=== PATIENT | male | born 1980 | race Caucasian/White ===

== ENCOUNTER 2016-11-28 15:46 | Emergency (ER) | payer MEDICAID, OTHER ==
[~2016-11-28] VITALS: Ht 167.6 cm; Wt 93.0 kg
[~2016-11-28 15:46] MED LIST: ACET500T98 PO; ALBU18HF INHALATION; AZIT250T94 PO; IBUP-1542 PO; UDROBDM PO
[2016-11-28 16:01] VITALS: Ht 167.6 cm; Wt 93.0 kg
[2016-11-28] MEDS ORDERED: PEN500 PO (16:25)
[2016-11-28] MEDS ORDERED: TYL500 PO (16:26)
--- NOTE | 2016-11-28 16:33 | ERD ---
ER Documentation Chief Complaint Date/Time DATE: 11/28/16 TIME: 16:30 Chief Complaint TOTAL BODY ACHES X 1 DAY HPI This is a 36-year-old male presents to the ER with body aches, fever, headache and sore throat for the last 3 days. Patient denies any cough. Sore throat is worse whenever he swallows. He denies any difficulty in breathing or swallowing. Patient states that he's been taking Tylenol for fever and body pain however body pain always returns. Patient denies any chest pain or shortness of breath. He denies any neck pain or neck stiffness. Patient states he has all his vaccinations including MMR. Patient denies recent travel or bug bites. ROS 12 point review of systems was done, all negative except per HPI. Medications Home Meds Active Scripts Acetaminophen* (Tylenol*) 500 Mg Tab, 1000 MG PO Q8H Y for PAIN AND OR ELEVATED TEMP for 3 Days, TAB Prov:DARREN OSPINA 11/28/16 Penicillin V Potassium* (Penicillin V K*) 500 Mg Tab, 500 MG PO TID for 10 Days , TAB Prov:DARREN OSPINA 11/28/16 Albuterol Sulfate* (Ventolin HFA*) 18 Gm Hfa.aer.ad, 2 PUFF INHALATION Q4H, #1 INHALER Prov:FADUMO MERIDA MD 08/10/15 Azithromycin* (Zithromax*) 250 Mg Tablet, 250 MG PO .ZPACK DIRECTED, #6 TAB TAKE 500 MG (2 TABS) THE FIRST DAY THEN 250 MG (1 TAB) DAYS 2-5 Prov:FADUMO MERIDA MD 08/10/15 Guaifenesin-Dextromethorphan* (Robitussin* DM) 100MG/10MG/5ML Syrup, 5 ML PO Q6H Y for COUGH, #120 ML 0 Refills Prov:MARC AGUAYO PA-C 08/09/15 Acetaminophen (Tylenol) 500 Mg Tab, 500 MG PO Q6, #30 TAB 0 Refills Prov:MARC AGUAYO PA-C 08/09/15 Ibuprofen* (Motrin*) 600 Mg Tab, 600 MG PO Q6H Y for PAIN AND OR ELEVATED TEMP, #30 Prov:JUAN PABLO NYE 05/17/15 Allergies Allergies: Coded Allergies: No Known Allergy (Unverified , 05/17/15) PMhx/Soc History of Surgery: No Anesthesia Reaction: No Hx Neurological Disorder: No Hx Respiratory Disorders: No Hx Cardiac Disorders: No Hx Psychiatric Problems: No Hx Miscellaneous Medical Probl: Yes (HIGH CHLOSTEROL) Hx Alcohol Use: No Hx Substance Use: No Hx Tobacco Use: No Physical Exam Vitals Vital Signs Date Time Temp Pulse Resp B/P Pulse Ox O2 Delivery O2 Flow Rate FiO2 11/28/16 16:01 99.3 82 20 136/81 97 Physical Exam GENERAL: The patient is well-developed, well-nourished, in no acute distress. NECK: Cervical spine is non tender with no step off. Supple, no nuchal rigidity HEENT: Atraumatic. Pupils equal, round and reactive to light. Extraocular muscles are grossly intact. Conjunctivae pink, no discharge. Bilateral tympanic membranes are clear with no evidence of erythema, effusion or dulling of the light reflex. Bilateral tonsillar erythema with exudate. No uvular deviation no kissing tonsils. Clear rhinorrhea. RESPIRATORY: Clear to auscultation bilaterally. There are no rales, wheezes or rhonchi. HEART: Regular rate and rhythm. No murmurs, clicks, rubs or gallops. EXTREMITIES: No clubbing or cyanosis. Full range of motion. Grossly neurovascularly intact. NEUROLOGIC: Alert and oriented. Cranial nerves II through XII are intact. SKIN: There is no rash. The skin is warm and dry. Procedures/MDM Differential diagnosis includes but is not limited to; viral illness, influenza , strep throat, otitis media, pneumonia, meningitis, sepsis, West Nile virus, mono, mumps. This is a 36-year-old male presents to the ER with sore throat, fever and body pain. Patient does appear to have strep throat on physical examination. Suspicion for retropharyngeal abscess or peritonsillar abscess is low, patient does not have any uvular deviation or kissing tonsils. For West Nile virus or mumps is low, patient has not traveled anywhere, does not recall any bug bits and has gotten all of his vaccines. Patient will be sent home with penicillin and with Tylenol. He needs to follow-up with his primary care doctor within 1-2 days or return to ER sooner symptoms worsen. My medical decision making was shared with the patient he understands and agrees with plan. Departure Diagnosis: Primary Impression: Strep throat Condition: Stable Patient Instructions: Strep Throat Additional Instructions: Llame al doctor MAANA y ulises thompson NAHUN PARA DENTRO DE 1-2 STEEN.Dgale a la secretaria que nosotros le instruimos hacer esta nahun.Avise o llame si marie condicin se empeora antes de la nahun. Regresa aqui si peor o no mejor. DARREN OSPINA Nov 28, 2016 16:33
[2016-11-29] MEDS ORDERED: HYDR-906 PO (09:02)
== END 2016-11-28 16:43 | disposition home or self-care (01) ==
LOC: E/R 15:46
DX: J02.9 Acute pharyngitis, unspecified (principal)
CPT/HCPCS: 99283

== ENCOUNTER 2016-11-29 08:28 | Emergency (ER) | payer OTHER ==
[~2016-11-29] VITALS: Ht 167.6 cm; Wt 93.5 kg
[~2016-11-29 08:28] MED LIST changes: +PEN500 PO; +TYL500 PO
[2016-11-29 08:41] VITALS: Ht 167.6 cm; Wt 93.5 kg
[2016-11-29] MEDS ORDERED: KETOROLAC 30 MG INJ IM STA (08:59)
[2016-11-29] MEDS ORDERED: HYDR-906 PO (09:02)
--- NOTE | 2016-11-29 09:09 | ERD ---
ER Documentation Chief Complaint Date/Time DATE: 11/29/16 TIME: 09:02 Chief Complaint C/O MID ABD PAIN X 4 DAYS. SEEN YESTERDAY FOR SAME HPI This is a 36-year-old male who presents to the emergency department today complaining of pain in his body for 4 several days. Patient was seen here yesterday but states he did not pick remover his prescriptions because the pharmacies were all closed. States that most of the pain is in his back and on the sides of his stomach. Denies any chest pain, shortness of breath, abdominal pain ROS All systems reviewed and are negative except as per history of present illness. Medications Home Meds Active Scripts Hydrocodone/Acetaminophen (Prague 5-325 Tablet) 1 Each Tablet, 1 TAB PO Q6H Y for PAIN, #10 TAB Prov:ARIAS JOHNSON PA-C 11/29/16 Acetaminophen* (Tylenol*) 500 Mg Tab, 1000 MG PO Q8H Y for PAIN AND OR ELEVATED TEMP for 3 Days, TAB Prov:DARREN OSPINA 11/28/16 Penicillin V Potassium* (Penicillin V K*) 500 Mg Tab, 500 MG PO TID for 10 Days , TAB Prov:DARREN OSPINA 11/28/16 Albuterol Sulfate* (Ventolin HFA*) 18 Gm Hfa.aer.ad, 2 PUFF INHALATION Q4H, #1 INHALER Prov:FADUMO MERIDA MD 08/10/15 Azithromycin* (Zithromax*) 250 Mg Tablet, 250 MG PO .ZPACK DIRECTED, #6 TAB TAKE 500 MG (2 TABS) THE FIRST DAY THEN 250 MG (1 TAB) DAYS 2-5 Prov:FADUMO MERIDA MD 08/10/15 Guaifenesin-Dextromethorphan* (Robitussin* DM) 100MG/10MG/5ML Syrup, 5 ML PO Q6H Y for COUGH, #120 ML 0 Refills Prov:MARC AGUAYO PA-C 08/09/15 Acetaminophen (Tylenol) 500 Mg Tab, 500 MG PO Q6, #30 TAB 0 Refills Prov:MARC AGUAYO PA-C 08/09/15 Ibuprofen* (Motrin*) 600 Mg Tab, 600 MG PO Q6H Y for PAIN AND OR ELEVATED TEMP, #30 Prov:JUAN PABLO NYE 05/17/15 Allergies Allergies: Coded Allergies: No Known Allergy (Unverified , 05/17/15) PMhx/Soc History of Surgery: No Anesthesia Reaction: No Hx Neurological Disorder: No Hx Respiratory Disorders: No Hx Cardiac Disorders: No Hx Psychiatric Problems: No Hx Miscellaneous Medical Probl: Yes (HIGH CHLOSTEROL, DM) Hx Alcohol Use: No Hx Substance Use: No Hx Tobacco Use: No Smoking Status: Never smoker Physical Exam Vitals Vital Signs Date Time Temp Pulse Resp B/P Pulse Ox O2 Delivery O2 Flow Rate FiO2 11/29/16 08:41 97.3 97 19 142/86 99 Physical Exam Const: No acute distress Head: Atraumatic Eyes: Normal Conjunctiva ENT: Ears TMs normal. Nose no drainage. Throat with erythema. Neck: Full range of motion..~ No meningismus. Resp: Clear to auscultation bilaterally Cardio: Regular rate and rhythm, no murmurs Abd: Soft, non tender, non distended. Normal bowel sounds Skin: No petechiae or rashes Back: No midline tenderness. Bilateral lumbar paraspinal tenderness. No CVA tenderness. Ext: No cyanosis, or edema Neur: Awake and alert Psych: Normal Mood and Affect Results 24 hrs Current Medications Medications (Trade) Dose Ordered Sig/Noe Route PRN Reason Start Time Stop Time Status Last Admin Dose Admin Ketorolac Tromethamine (Toradol) 30 mg ONCE STAT IM 11/29/16 08:59 11/29/16 09:00 DC Procedures/MDM This a 36-year-old male who presents to the emergency department today for body aches for the past 4 days. Patient was seen here in the emergency department yesterday and was diagnosed with strep pharyngitis. Patient was given a prescription for penicillin and Tylenol however he did not go pick remover his medications because he stated that all of the pharmacies were closed. I have informed the patient of the local 24-hour [facility] pharmacy where he may go pick remover his prescriptions. Patient does appear to have symptoms of strep throat however I have low suspicion for retropharyngeal abscess or peritonsillar abscess. Patient is afebrile at this time is in no acute distress. His respirations are 19 his oxygen saturation is 99. He is not tachycardic. I do not feel he requires further evaluation or workup at this time. He denied any abdominal pain on physical exam and stated the pain was mostly off to the sides down to the sides of his back. He is sitting comfortably in the chair in no acute distress. Low suspicion for acute surgical abdomen. Patient was given a Toradol injection here in the emergency department. I gave the patient a short course of Prague for home and instructed him to go pick remover his medications. I did consider that the patient may have flulike symptoms however given the duration of symptoms I do not feel that he would benefit from a prescription for Tamiflu. I have low suspicion for otitis media, PNA, sinusitis, abscess, meningitis, sepsis, or other acute infectious bacterial process. Patient has no CVA tenderness. Low suspicion for pyelonephritis or nephrolithiasis. At this time the patient is stable for discharge and outpatient management. Patient should follow up with their PCP in the next 1-2 days. They may return to the emergency department sooner for any persistent or worsening of symptoms. Patient understood and agreed with the plan. Departure Diagnosis: Primary Impression: Body aches Condition: Fair Patient Instructions: Pain Management Ref[facility]: [facility] se bhatia hecho un examen mdico de control que le indica que no est en thompson condicin que requiera tratamiento urgente en el Departamento de Emergencia. Un estudio ms profundo y el tratamiento de marie condicin pueden esperar sin ningn riesgo hasta que usted sea atendida/o en el consultorio de marie mdico o thompson cl mariajose. Es responsabilidad suya arreglar thompson nahun para el seguimiento del harpreet. MANEJO DE CONDICIONES NO URGENTES EN EL FUTURO 1) Si usted tiene un mdico de atencin primaria: Usted debera llamar a marie mdico de atencin primaria antes de venir al departamento de emergencia. Despus de las horas de consultorio, marie doctor o marie asociado/a est disponible por telfono. El mdico o enfermero de bernard en el servicio telefnico puede asesorarle por anant medio para atender el problema, o harpreet contrario se puede programar thompson nahun. 2) Si usted no tiene un mdico de atencin primaria: Llame al mdico o clnica de referencia que aparece abajo devorah las horas de consultorio para hacer thompson nahun para que le vean. CLINICAS: [facility] [id number] [facility] [phone] [facility] [[email or web address] [phone] [place] [phone] [facility] [place] [address] [phone] [facility] [phone] [address] Additional Instructions: Llame al doctor MAANA y ulises thompson NAHUN PARA DENTRO DE 1-2 STEEN.Dgale a la secretaria que nosotros le instruimos hacer esta nahun.Avise o llame si marie condicin se empeora antes de la nahun. Regresa aqui si peor o no mejor. Go pick remover your prescriptions for your antibiotic and pain medication ARIAS JOHNSON PA-C Nov 29, 2016 09:08
[2016-11-30] MEDS ORDERED: ONDA4TAB14 PO (11:32)
== END 2016-11-29 09:10 | disposition home or self-care (01) ==
LOC: FTE 08:28
DX: R52 Pain, unspecified (principal); E11.9 Type 2 diabetes mellitus without complications
CPT/HCPCS: 96372; J1885; Z7502

== ENCOUNTER 2016-11-30 08:42 | Emergency (ER) | payer OTHER ==
[~2016-11-30] VITALS: Ht 170.2 cm; Wt 92.5 kg
[~2016-11-30 08:42] MED LIST changes: +HYDR-906 PO
[2016-11-30 08:43] VITALS: Ht 170.2 cm; Wt 92.5 kg
[2016-11-30] MEDS ORDERED: ONDANSETRON 4 MG INJ IV STA (09:29)
[2016-11-30] MEDS ORDERED: KETOROLAC 30 MG INJ IV STA (09:29)
[2016-11-30] MEDS ORDERED: SOD CHLORIDE 0.9% 1,000 ML IV ONE (09:30)
[2016-11-30] MEDS ORDERED: ACETAMINOPHEN 325 MG TAB PO ONE (10:00)
[2016-11-30 10:01] LABS: ADD SCAN DIFF NO
[2016-11-30 10:05] LABS: BASOPHILS % 0.2 % (0.0-2.0); HEMATOCRIT 47.1 % (42.0-52.0); HEMOGLOBIN 15.5 g/dl (14.0-18.0); LYMPHOCYTES # 1.6 10^3/ul (0.8-2.9); LYMPHOCYTES % 36.7 % (15.0-51.0); MEAN CORPUSCULAR HGB CONC 32.9 g/dl (32.0-37.0); MEAN CORPUSCULAR VOLUME 88.2 fl (82.0-101.0); MEAN PLATELET VOLUME 12.7 fl (7.4-10.4); MONOCYTE # 0.4 10^3/ul (0.3-0.9); MONOCYTES % 8.1 % (0.0-11.0); NEUTROPHIL # 2.4 10^3/ul (1.6-7.5); NEUTROPHILS % 54.8 % (39.0-77.0); PLATELET COUNT 126 10^3/UL (140-415); RED BLOOD COUNT 5.34 10^6/ul (4.70-6.10); RED CELL DISTRIBUTION WIDTH 13.7 % (11.5-14.5); WHITE BLOOD COUNT 4.3 10^3/ul (4.8-10.8)
[2016-11-30 10:23] LABS: ADD UMIC YES; UR BILIRUBIN (Dip) NEGATIVE (NEGATIVE); UR BLOOD (Dip) TRACE (NEGATIVE); UR CLARITY CLEAR (CLEAR); UR COLOR LT. YELLOW (YELLOW); UR GLUCOSE (Dip) NEGATIVE (NEGATIVE); UR KETONES (Dip) NEGATIVE (NEGATIVE); UR LEUKOCYTE ESTERASE (Dip) NEGATIVE (NEGATIVE); UR NITRITE (Dip) NEGATIVE (NEGATIVE); UR TOTAL PROTEIN (Dip) NEGATIVE (NEGATIVE); UR UROBILINOGEN (Dip) 0.2 E.U./dL (0.1-1.0)
[2016-11-30 10:34] LABS: ALBUMIN 4.9 g/dl (3.3-4.9); ALBUMIN/GLOBULIN RATIO 1.36; BILIRUBIN,INDIRECT 0.1 mg/dl (0-1.1); BILIRUBIN,TOTAL 0.1 mg/dl (0.2-1.3); CALCIUM 8.9 mg/dl (8.4-10.2); CREATININE 0.84 mg/dl (0.61-1.24); POTASSIUM 4.1 mmol/L (3.5-5.1); TOTAL PROTEIN 8.5 g/dl (6.1-8.1)
[2016-11-30 10:54] LABS: UR MUCUS FEW; URINE RBCS 0-2 /HPF (0)
--- NOTE | 2016-11-30 11:00 | RADRPT ---
PROCEDURE: US Abdomen (right upper quadrant). CLINICAL INDICATION: Right upper quadrant pain TECHNIQUE: Multiple real-time longitudinal and transverse images of the right upper quadrant of th e abdomen were acquired utilizing a curved array transducer. Images were reviewed on a high-resoluti on PACS workstation. COMPARISON: CT abdomen pelvis from 05/17/2015 FINDINGS: The liver is normal in size with a slightly coarsened echotexture without focal mass or intrahepatic biliary dilatation. There is normal hepatopedal flow within the main portal vein. The gallbladder is well displayed without filling defects or wall thickening The common bile duct measures 3.8 mm in maximal dimension. The visualized portions of the pancreas are unremarkable with obscuration of the tail of the pancreas. No free fluid is identified. The right kidney measures 12.0 cm in length. There is normal echogenicity within the right kidney. There is no perinephric fluid collection. No hydronephrosis, mass, or calculus is seen. IMPRESSION: 1. Mildly coarsened echotexture of the liver raising the question of mild steatosis. RPTAT: [facility] Physician Cipriano Date Time Electronically viewed and signed by Physician Cipriano on 11/30/2016 10:59 /
[2016-11-30] MEDS ORDERED: ONDA4TAB14 PO (11:32)
[2016-11-30 11:37] VITALS: BP 130/78; PULSE 90; RESP 20; TEMP 98.8
--- NOTE | 2016-11-30 11:50 | ERD ---
ER Documentation Chief Complaint Date/Time DATE: 11/30/16 TIME: 11:46 Chief Complaint BODY ACHES ESPECIALLY BACK AND ABDOMEN X 4 DAYS HPI 36-year-old male patient with no significant past medical history presents to the ED complaining of generalized body aches and specifically back pain that radiates to the abdomen. States that he was diagnosed here 2 days ago with strep throat and has been taking the antibiotics. Denies having rash. Reports that he does not feel any better with taking ibuprofen and penicillin therefore presented yesterday and was given Bolivar but did not fill the medication. Denies any neck stiffness, headache, vomiting, diarrhea, rashes, chest pain, wheezing, shortness of breath. Denies any sick contacts. ROS All systems reviewed and are negative except as per history of present illness. Medications Home Meds Active Scripts Ondansetron (Ondansetron Odt) 4 Mg Tab.rapdis, 4 MG PO Q6H Y for NAUSEA AND/OR VOMITING, #10 TAB Prov:SIMONA RAPP PA-C 11/30/16 Hydrocodone/Acetaminophen (Bolivar 5-325 Tablet) 1 Each Tablet, 1 TAB PO Q6H Y for PAIN, #10 TAB Prov:ARIAS JOHNSON PA-C 11/29/16 Acetaminophen* (Tylenol*) 500 Mg Tab, 1000 MG PO Q8H Y for PAIN AND OR ELEVATED TEMP for 3 Days, TAB Prov:DARREN OSPINA 11/28/16 Penicillin V Potassium* (Penicillin V K*) 500 Mg Tab, 500 MG PO TID for 10 Days , TAB Prov:DARREN OSPINA 11/28/16 Albuterol Sulfate* (Ventolin HFA*) 18 Gm Hfa.aer.ad, 2 PUFF INHALATION Q4H, #1 INHALER Prov:FADUMO MERIDA MD 08/10/15 Azithromycin* (Zithromax*) 250 Mg Tablet, 250 MG PO .LEONOR DIRECTED, #6 TAB TAKE 500 MG (2 TABS) THE FIRST DAY THEN 250 MG (1 TAB) DAYS 2-5 Prov:FADUMO MERIDA MD 08/10/15 Guaifenesin-Dextromethorphan* (Robitussin* DM) 100MG/10MG/5ML Syrup, 5 ML PO Q6H Y for COUGH, #120 ML 0 Refills Prov:MARC AGUAYO KRISTOFER 08/09/15 Acetaminophen (Tylenol) 500 Mg Tab, 500 MG PO Q6, #30 TAB 0 Refills Prov:MARC AGUAYO ADELAAraceliLinda 08/09/15 Ibuprofen* (Motrin*) 600 Mg Tab, 600 MG PO Q6H Y for PAIN AND OR ELEVATED TEMP, #30 Prov:JUAN PABLO NYE 05/17/15 Allergies Allergies: Coded Allergies: No Known Allergy (Unverified , 05/17/15) PMhx/Soc History of Surgery: No Anesthesia Reaction: No Hx Neurological Disorder: No Hx Respiratory Disorders: No Hx Cardiac Disorders: No Hx Psychiatric Problems: No Hx Miscellaneous Medical Probl: Yes (HIGH CHLOSTEROL, DM) Hx Alcohol Use: No Hx Substance Use: No Hx Tobacco Use: No Smoking Status: Never smoker Physical Exam Vitals Vital Signs Date Time Temp Pulse Resp B/P Pulse Ox O2 Delivery O2 Flow Rate FiO2 11/30/16 11:37 98.8 90 20 130/78 99 Room Air 11/30/16 08:43 100.8 102 25 126/66 95 Physical Exam Const: Zdu-bbo-minatlayh, well-nourished. In no acute distress. Head: Atraumatic, normocephalic Eyes: Normal Conjunctiva without injection. No purulent discharge. ENT: Normal external ear, nose. Moist oropharynx without tonsillar exudates. Non -erythematous pharynx. Uvula midline. No drooling. No trismus. Neck: No cervical midline tenderness. Full range of motion. No meningismus. No cervical lymphadenopathy. No JVD. Resp: Clear to auscultation bilaterally. No wheezing, rhonchi, rales, or crackles. No accessory muscle use. No retractions. Cardio: Regular rate and rhythm. No murmurs, rubs or gallops. Abd: Soft, right upper quadrant tenderness, non distended. Normal bowel sounds. No palpable masses. No rebound tenderness. No guarding. Negative McBurney' s point. Negative psoas sign. Negative obturator sign. Skin: No petechiae or rashes Back: No midline tenderness. No CVA tenderness. Ext: No cyanosis, or edema. Neur: Awake and alert. Normal gait. Normal coordination. Psych: Normal Mood and Affect Results 24 hrs Laboratory Tests Test 11/30/16 09:40 White Blood Count 4.310^3/ul Red Blood Count 5.3410^6/ul Hemoglobin 15.5g/dl Hematocrit 47.1% Mean Corpuscular Volume 88.2fl Mean Corpuscular Hemoglobin 29.0pg Mean Corpuscular Hemoglobin Concent 32.9g/dl Red Cell Distribution Width 13.7% Platelet Count 90253^3/UL Mean Platelet Volume 12.7fl Neutrophils % 54.8% Lymphocytes % 36.7% Monocytes % 8.1% Eosinophils % 0.0% Basophils % 0.2% Nucleated Red Blood Cells % 0.0/100WBC Neutrophils # 2.410^3/ul Lymphocytes # 1.610^3/ul Monocytes # 0.410^3/ul Eosinophils # 0.010^3/ul Basophils # 0.010^3/ul Nucleated Red Blood Cells # 0.010^3/ul Urine Color LT. YELLOW Urine Clarity CLEAR Urine pH 5.5 Urine Specific [place] 1.025 Urine Ketones NEGATIVE Urine Nitrite NEGATIVE Urine Bilirubin NEGATIVE Urine Urobilinogen 0.2 E.U./dL Urine Leukocyte Esterase NEGATIVE Urine Microscopic RBC 0-2/HPF Urine Microscopic WBC 0-2/HPF Urine Mucus FEW Urine Hemoglobin TRACE Urine Glucose NEGATIVE% Urine Total Protein NEGATIVE Sodium Level 145mmol/L Potassium Level 4.1mmol/L Chloride Level 105mmol/L Carbon Dioxide Level 30mmol/L Anion Gap 14 Blood Urea Nitrogen 14mg/dl Creatinine 0.84mg/dl Glucose Level 126mg/dl Calcium Level 8.9mg/dl Total Bilirubin 0.1mg/dl Direct Bilirubin 0.00mg/dl Indirect Bilirubin 0.1mg/dl Aspartate Amino Transf (AST/SGOT) 62IU/L Alanine Aminotransferase (ALT/SGPT) 68IU/L Alkaline Phosphatase 69IU/L Total Protein 8.5g/dl Albumin 4.9g/dl Globulin 3.60g/dl Albumin/Globulin Ratio 1.36 Lipase 70U/L Monoscreen Positive Current Medications Medications (Trade) Dose Ordered Sig/Noe Route PRN Reason Start Time Stop Time Status Last Admin Dose Admin Ondansetron HCl (Zofran Inj) 4 mg ONCE STAT IV 11/30/16 09:29 11/30/16 09:31 DC 11/30/16 09:37 Ketorolac Tromethamine 30 mg 30 mg ONCE STAT IV 11/30/16 09:29 11/30/16 09:31 DC 11/30/16 09:37 Sodium Chloride (NS) 1,000 ml @ 1,000 mls/hr Q1H ONCE IV 11/30/16 09:30 11/30/16 10:29 DC 11/30/16 09:37 Acetaminophen (Tylenol Tab) 650 mg ONCE ONCE PO 11/30/16 10:00 11/30/16 10:01 DC 11/30/16 09:55 Procedures/MDM This is a 36-year-old male patient with no significant past medical history presents to the ED complaining of generalized body aches especially in the back and right upper quadrant region. Patient reports that he no longer has a sore throat. Patient is febrile at 100.8. Patient was further worked up with CBC, CMP, lipase, UA, gallbladder ultrasound. Patient's pain and symptoms have improved after treatment with 1 L of normal saline, 4 mg IV Zofran, 30 mg IV ketorolac, Tylenol. CBC: No leukocytosis. No e/o of systemic infection. No e/o anemia. CMP: No e/o severe acidosis, alkalosis, renal failure, diabetic ketoacidosis, liver disease Lipase within normal limits. Urine: No leukocyte esterase, no nitrites, no hematuria. Positive monospot. Positive influenza A. PROCEDURE: US Abdomen (right upper quadrant). CLINICAL INDICATION: Right upper quadrant pain TECHNIQUE: Multiple real-time longitudinal and transverse images of the right upper quadrant of the abdomen were acquired utilizing a curved array transducer. Images were reviewed on a high-resolution PACS workstation. COMPARISON: CT abdomen pelvis from 05/17/2015 FINDINGS: The liver is normal in size with a slightly coarsened echotexture without focal mass or intrahepatic biliary dilatation. There is normal hepatopedal flow within the main portal vein. The gallbladder is well displayed without filling defects or wall thickening The common bile duct measures 3.8 mm in maximal dimension. The visualized portions of the pancreas are unremarkable with obscuration of the tail of the pancreas. No free fluid is identified. The right kidney measures 12.0 cm in length. There is normal echogenicity within the right kidney. There is no perinephric fluid collection. No hydronephrosis, mass, or calculus is seen. IMPRESSION: 1. Mildly coarsened echotexture of the liver raising the question of mild steatosis. Patient's symptoms are likely due to mononucleosis and influenza. Both processes are viral and I instructed patient that he should discontinue taking the penicillin. Symptomatic outpatient treatment is recommended. There is low suspicion for sepsis, meningitis, strep pharyngitis, pneumonia, gastritis, GERD , peptic ulcer disease, cholecystitis, choledocholithiasis, cholangitis, pancreatitis, appendicitis, bowel obstruction, ileus, volvulus, nephrolithiasis , pyelonephritis, hepatitis, perforated viscus, diverticulitis, abdominal hernia , acute abdomen, mesenteric ischemia or other emergent conditions. This case was discussed with my supervising physician, Dr. Garcia who agreed with the management and discharge plan. Discharge medications: Zofran. Patient also given a prescription for Bolivar and Tylenol for pain and fever. Follow up with primary care physician in 2-3 days. No contact sports for 6 weeks and until cleared by PCP. Instructed patient to return to the ED sooner for any worsening symptoms. Patient's questions were answered. Patient understood and agreed with discharge plan. Patient discharged stable. Departure Diagnosis: Primary Impression: Influenza Additional Impression: Mononucleosis Condition: Stable Patient Instructions: Mononucleosis, Influenza (Adult) [facility] Usted se bhatia hecho un examen mdico de control que le indica que no est en thompson condicin que requiera tratamiento urgente en el Departamento de Emergencia. Un estudio ms profundo y el tratamiento de marie condicin pueden esperar sin ningn riesgo hasta que usted sea atendida/o en el consultorio de marie mdico o thompson cl mariajose. Es responsabilidad suya arreglar thompson nahun para el seguimiento del harpreet. MANEJO DE CONDICIONES NO URGENTES EN EL FUTURO 1) Si usted tiene un mdico de atencin primaria: Usted debera llamar a marie mdico de atencin primaria antes de venir al departamento de emergencia. Despus de las horas de consultorio, marie doctor o marie asociado/a est disponible por telfono. El mdico o enfermero de bernard en el servicio telefnico puede asesorarle por anant medio para atender el problema, o harpreet contrario se puede programar thompson nahun. 2) Si usted no tiene un mdico de atencin primaria: Llame al mdico o clnica de referencia que aparece abajo devorah las horas de consultorio para hacer thompson nahun para que le vean. CLINICAS: [facility] [phone] [facility] [phone] [facility] [phone] [place] [phone] [address] [place] [id number] [phone] [facility] [phone] [address] [facility]. [facility] () Usted se bhatia hecho un examen mdico de control que le indica que no est en thompson condicin que requiera tratamiento urgente en el Departamento de Emergencia. Un estudio ms profundo y el tratamiento de marie condicin pueden esperar sin ningn riesgo hasta que usted sea atendida/o en el consultorio de marie mdico o thompson cl mariajose. Es responsabilidad suya arreglar thompson nahun para el seguimiento del harpreet. MANEJO DE CONDICIONES NO URGENTES EN EL FUTURO 1) Si usted tiene un mdico de atencin primaria: Usted debera llamar a marie mdico de atencin primaria antes de venir al departamento de emergencia. Despus de las horas de consultorio, marie doctor o marie asociado/a est disponible por telfono. El mdico o enfermero de bernard en el servicio telefnico puede asesorarle por anant medio para atender el problema, o harpreet contrario se puede programar thompson nahun. 2) Si usted no tiene un mdico de atencin primaria: Llame al mdico o condado institucions de referencia que aparece abajo devorah las horas de consultorio para hacer thompson nahun para que le vean. SI USTED NO PUEDE PAGAR PARA GLEN UN MEDICO puede ir a: [facility] [address] [place] [address] [facility] [address] [place] [address] [facility] [address] [place] [address] [facility] [address] [place] [address] [facility] URGENT CARE/SPECIALTIES Additional Instructions: Deje de navneet los antibiticos jag las condiciones que usted bhatia sido diagnosticado con son virales. No deportes de contacto por 6 semanas. Llame al doctor MAANA y ulises thompson NAHUN PARA DENTRO DE 2-3 STEEN.Dgale a la secretaria que nosotros le instruimos hacer esta nahun.Avise o llame si marie condicin se empeora antes de la nahun. Regresa aqui si peor o no mejor. SIMONA RAPP PA-C Nov 30, 2016 11:50 SIMONA RAPP PA-C Nov 30, 2016 11:50
== END 2016-11-30 11:38 | disposition home or self-care (01) ==
LOC: FTE 08:42
DX: J10.1 Influenza due to other identified influenza virus with other respiratory manifestations (principal); B27.90 Infectious mononucleosis, unspecified without complication; E11.9 Type 2 diabetes mellitus without complications
CPT/HCPCS: 76705; 80053; 81001; 83690; 85025; 86308; 87400; J1885; J2405; J7030; Z7610; 36415; 96374; 96375

== ENCOUNTER 2016-12-09 19:24 | Emergency (ER) | payer OTHER ==
[~2016-12-09] VITALS: Ht 170.2 cm; Wt 90.0 kg
[~2016-12-09 19:24] MED LIST changes: +ONDA4TAB14 PO
[2016-12-09 19:32] VITALS: Ht 170.2 cm; Wt 90.0 kg
--- NOTE | 2016-12-09 19:57 | ERD ---
ER Documentation Chief Complaint Date/Time DATE: 12/09/16 TIME: 19:55 Chief Complaint cough x 2 days chest wall pain ramon time he coughs, back pain HPI 36-year-old male with a history of possible diabetes comes in with cough for the past week, chest pain, that radiates to his back for the past 5 days. He has sharp pain, in the center of his chest that radiates laterally each time he takes a deep breath and her outer coughs or has any chest movement. He has been here on 3 other occasions, he has been diagnosed with strep pharyngitis and took penicillin, then he returned and had a positive mono screen as well as an influenza a. He has been taking Tylenol and he states he has a frontal headache that is throbbing that started today. He has not had any fevers, chills. ROS All systems reviewed and are negative except as per history of present illness. Medications Home Meds Active Scripts Guaifenesin/Codeine Phosphate (CHERATUSSIN AC SYRUP) 118 Ml Liquid, 5 ML PO Q4H Y for COUGH, #118 ML Prov:AURE SPANGLER PA-C 12/09/16 Ibuprofen* (Motrin*) 600 Mg Tab, 600 MG PO Q6, #30 TAB Prov:AURE SPANGLER PA-C 12/09/16 Ondansetron (Ondansetron Odt) 4 Mg Tab.rapdis, 4 MG PO Q6H Y for NAUSEA AND/OR VOMITING, #10 TAB Prov:SIMONA RAPP PA-C 11/30/16 Hydrocodone/Acetaminophen (Herrin 5-325 Tablet) 1 Each Tablet, 1 TAB PO Q6H Y for PAIN, #10 TAB Prov:ARIAS JOHNSON PA-C 11/29/16 Acetaminophen* (Tylenol*) 500 Mg Tab, 1000 MG PO Q8H Y for PAIN AND OR ELEVATED TEMP for 3 Days, TAB Prov:DARREN OSPINA 11/28/16 Penicillin V Potassium* (Penicillin V K*) 500 Mg Tab, 500 MG PO TID for 10 Days , TAB Prov:DARREN OSPINA 11/28/16 Albuterol Sulfate* (Ventolin HFA*) 18 Gm Hfa.aer.ad, 2 PUFF INHALATION Q4H, #1 INHALER Prov:FADUMO MERIDA MD 08/10/15 Azithromycin* (Zithromax*) 250 Mg Tablet, 250 MG PO .ZPACK DIRECTED, #6 TAB TAKE 500 MG (2 TABS) THE FIRST DAY THEN 250 MG (1 TAB) DAYS 2-5 Prov:FADUMO MERIDA MD 08/10/15 Guaifenesin-Dextromethorphan* (Robitussin* DM) 100MG/10MG/5ML Syrup, 5 ML PO Q6H Y for COUGH, #120 ML 0 Refills Prov:MARC AGUAYO PA-C 08/09/15 Acetaminophen (Tylenol) 500 Mg Tab, 500 MG PO Q6, #30 TAB 0 Refills Prov:MARC AGUAYO PA-C 08/09/15 Ibuprofen* (Motrin*) 600 Mg Tab, 600 MG PO Q6H Y for PAIN AND OR ELEVATED TEMP, #30 Prov:JUAN PABLO NYE 05/17/15 Allergies Allergies: Coded Allergies: No Known Allergy (Unverified , 05/17/15) PMhx/Soc Medical and Surgical Hx: pt denies Medical Hx, pt denies Surgical Hx History of Surgery: No Anesthesia Reaction: No Hx Neurological Disorder: No Hx Respiratory Disorders: No Hx Cardiac Disorders: No Hx Psychiatric Problems: No Hx Miscellaneous Medical Probl: Yes (HIGH CHLOSTEROL, DM) Hx Alcohol Use: No Hx Substance Use: No Hx Tobacco Use: No Smoking Status: Never smoker Physical Exam Vitals Vital Signs Date Time Temp Pulse Resp B/P Pulse Ox O2 Delivery O2 Flow Rate FiO2 12/09/16 19:32 98.6 101 20 117/66 98 Physical Exam \General: Well-developed, well-nourished. The patient appears in no acute distress. HEENT: Head is normocephalic, atraumatic. No scleral icterus. Neck: Supple. Nontender. Lungs: Clear to auscultation. Normal air movement. Chest wall is tender to palpation in the center, patient also has bilateral latissimus pain upon palpation. Heart: Regular rate and rhythm. S1 and S2 are normal. No murmurs, gallops, or rubs. Abdomen: Soft, nontender, nondistended. Bowel sounds are normoactive. Extremities: No clubbing or cyanosis. Normal pulses. Moving extremities x 4. No weakness. Neurologic: Alert and oriented 3. No focal deficits. Skin: Normal turgor. No rash or lesions. Result Diagram: 12/09/16200712/09/162007 Results 24 hrs Laboratory Tests Test 12/09/16 20:00 12/09/16 20:08 Urine Color YELLOW Urine Clarity CLEAR Urine pH 5.5 Urine Specific [place] >=1.030 Urine Ketones NEGATIVE Urine Nitrite NEGATIVE Urine Bilirubin NEGATIVE Urine Urobilinogen 0.2 E.U./dL Urine Leukocyte Esterase NEGATIVE Urine Microscopic RBC 0-2/HPF Urine Microscopic WBC NONE SEEN/HPF Urine Squamous Epithelial Cells RARE Urine Hemoglobin TRACE Urine Glucose NEGATIVE% Urine Total Protein NEGATIVE White Blood Count 5.910^3/ul Red Blood Count 4.8310^6/ul Hemoglobin 14.1g/dl Hematocrit 41.2% Mean Corpuscular Volume 85.3fl Mean Corpuscular Hemoglobin 29.2pg Mean Corpuscular Hemoglobin Concent 34.2g/dl Red Cell Distribution Width 13.0% Platelet Count 30849^3/UL Mean Platelet Volume 12.0fl Neutrophils % 55.0% Band Neutrophils % 3.0% Lymphocytes % 38.0% Reactive Lymphocytes % 1.0% Monocytes % 3.0% Neutrophils # 3.210^3/ul Lymphocytes # 2.210^3/ul Monocytes # 0.210^3/ul Platelet Estimate PLT APPEAR ADEQUATE Sodium Level 141mmol/L Potassium Level 3.7mmol/L Chloride Level 106mmol/L Carbon Dioxide Level 29mmol/L Anion Gap 10 Blood Urea Nitrogen 15mg/dl Creatinine 0.88mg/dl Glucose Level 95mg/dl Calcium Level 8.7mg/dl Troponin I < 0.012ng/ml Lipase 85U/L Current Medications Medications (Trade) Dose Ordered Sig/Noe Route PRN Reason Start Time Stop Time Status Last Admin Dose Admin Ibuprofen (Motrin) 600 mg ONCE ONCE PO 12/09/16 20:00 12/09/16 20:01 DC 12/09/16 20:03 DIAGNOSTIC IMAGING REPORT Patient: MICHELLE NEVES : 1980 Age: 36 Sex: M MR #: [id number] DOS: 12/09/16 194 Ordering MD: AURE SPANGLER PA-C [facility] Room[facility]Bed: PROCEDURE: XR Chest. CLINICAL INDICATION: Chest pain. Cough.. TECHNIQUE: Single frontal chest x-ray. COMPARISON: 08/09/2015 FINDINGS: The cardiomediastinal silhouette is unremarkable. There is no congestive heart failure.. No focal infiltrate is seen. Redemonstrated minimal right upper lobe probable scarring, unchanged. There is no pleural effusion. There is no pneumothorax. The osseous structures are unremarkable. IMPRESSION: 1. No active disease. 2. Minimal right upper lobe probable scarring. RPTAT: HMVK .Florentin Castro MD, MD Date Time Electronically viewed and signed by .Florentin Castro MD, MD on 12/09/2016 22:25 .K/ CC: AURE SPANGLER PA-C Procedures/MDM ED course: 12-lead EKG(interpreted by supervising physician): Dr. Merida Rate/Rhythm: Normal Sinus Rhythm, rate of 74 QRS, ST, T-waves: No changes consistent w/ acute ischemia, no intervals, no dysrhythmias, no ectopy Impression: No evidence of ischemia or arrhythmia Labs urine obtained. He was medicated with ibuprofen for pain. Pain was improved with ibuprofen in the emergency room. MDM: 36-year-old male comes in with a cough for the past week, I suspect bronchitis and likely viral. Patient's previous visit show that he had positive mononucleosis, he also has been diagnosed with influenza. Chest x-ray was done and unremarkable. His pain did improve with ibuprofen, I believe that this is costochondritis, given his pleuritic chest pain. I doubt pulmonary embolus, dissection, acute coronary syndrome. Labs are obtained given patient' s multiple visits, troponin was negative. Is on the patient's history do not believe the patient's pain is cardiac, I have advised him to take ibuprofen, will be given Cheratussin for cough and will be discharged home. Departure Diagnosis: Primary Impression: Bronchitis Condition: Good AURE SPANGLER PA-C Dec 09, 2016 19:56
[2016-12-09] MEDS ORDERED: IBUPROFEN 600 MG TAB PO ONE (20:00)
[2016-12-09 20:15] LABS: ADD SCAN DIFF NO
[2016-12-09 20:19] LABS: HEMATOCRIT 41.2 % (42.0-52.0); HEMOGLOBIN 14.1 g/dl (14.0-18.0); MEAN CORPUSCULAR HEMOGLOBIN 29.2 pg (29.0-33.0); MEAN CORPUSCULAR HGB CONC 34.2 g/dl (32.0-37.0); MEAN CORPUSCULAR VOLUME 85.3 fl (82.0-101.0); PLATELET COUNT 206 10^3/UL (140-415); RED BLOOD COUNT 4.83 10^6/ul (4.70-6.10); WHITE BLOOD COUNT 5.9 10^3/ul (4.8-10.8)
[2016-12-09 20:20] LABS: ADD UMIC YES; URINE BILIRUBIN (Dip) NEGATIVE (NEGATIVE); URINE BLOOD (Dip) TRACE (NEGATIVE); URINE COLOR YELLOW (YELLOW); URINE GLUCOSE (Dip) NEGATIVE (NEGATIVE); URINE KETONES (Dip) NEGATIVE (NEGATIVE); URINE LEUKOCYTE ESTERASE (Dip) NEGATIVE (NEGATIVE); URINE NITRITE (Dip) NEGATIVE (NEGATIVE); URINE TOTAL PROTEIN (Dip) NEGATIVE (NEGATIVE); URINE UROBILINOGEN (Dip) 0.2 E.U./dL (0.1-1.0)
[2016-12-09 20:33] LABS: SQUAMOUS EPITHELIAL CELL,UR RARE; URINE RBCS 0-2 /HPF (0)
[2016-12-09 20:44] LABS: ANION GAP 10 (8-16); BLOOD UREA NITROGEN 15 mg/dl (7-20); CALCIUM 8.7 mg/dl (8.4-10.2); CARBON DIOXIDE 29 mmol/L (21-31); CHLORIDE 106 mmol/L (97-110); CREATININE 0.88 mg/dl (0.61-1.24); GLUCOSE 95 mg/dl (70-220); POTASSIUM 3.7 mmol/L (3.5-5.1); SODIUM 141 mmol/L (135-144)
[2016-12-09 20:56] LABS: TROPONIN-I < 0.012 ng/ml (0.00-0.12)
[2016-12-09 21:05] LABS: LYMPHOCYTES # 2.2 10^3/ul (0.8-2.9); MONOCYTE # 0.2 10^3/ul (0.3-0.9); NEUTROPHIL # 3.2 10^3/ul (1.6-7.5)
[2016-12-09 21:09] LABS: PLATELET ESTIMATE PLT APPEAR ADEQUATE
--- NOTE | 2016-12-09 22:25 | RADRPT ---
PROCEDURE: XR Chest. CLINICAL INDICATION: Chest pain. Cough.. TECHNIQUE: Single frontal chest x-ray. COMPARISON: 08/09/2015 FINDINGS: The cardiomediastinal silhouette is unremarkable. There is no congestive heart failure.. No focal i nfiltrate is seen. Redemonstrated minimal right upper lobe probable scarring, unchanged. There is no pleural effusion. There is no pneumothorax. The osseous structures are unremarkable. IMPRESSION: 1. No active disease. 2. Minimal right upper lobe probable scarring. RPTAT: HMVK .Florentin Castro MD, MD Date Time Electronically viewed and signed by .Florentin Castro MD, on 12/09/2016 22:25 .K/
[2016-12-09] MEDS ORDERED: IBUP-1542 PO (22:35)
[2016-12-09] MEDS ORDERED: GUAI118L22 PO (22:35)
[2016-12-09 22:52] VITALS: BP 109/63; PULSE 73; RESP 18; TEMP 98.7
== END 2016-12-09 22:54 | disposition home or self-care (01) ==
LOC: FTE 19:24
DX: J20.9 Acute bronchitis, unspecified (principal); E11.9 Type 2 diabetes mellitus without complications; R07.9 Chest pain, unspecified
CPT/HCPCS: 71010; 80048; 81001; 83690; 84484; 85025; 93005; Z7610; 36415

== ENCOUNTER 2017-12-05 22:01 | Emergency (ER) | END 2017-12-05 23:02 | disposition home or self-care (01) ==

== ENCOUNTER → 2018-05-25 | Emergency (ER) | END | disposition home or self-care (01) ==

== ENCOUNTER 2018-08-24 09:30 | Emergency (ER) | payer OTHER ==
[~2018-08-24] VITALS: Wt 87.0 kg
[~2018-08-24 09:30] MED LIST changes: +ACET500C5 PO; +AMOX500C2 PO; +AZIT250T PO; -AZIT250T94 PO; +GUAI118L22 PO; +GUAI5SYR2 PO; +HYDR-4011 PO; -HYDR-906 PO; -PEN500 PO; +PENI500T PO; +SODI126M NASAL; -UDROBDM PO
[2018-08-24] MEDS ORDERED: KETOROLAC 30 MG INJ IM STA (10:11)
[2018-08-24] MEDS ORDERED: ACET325T33 PO (12:02)
[2018-08-24] MEDS ORDERED: IBUP-1542 PO (12:02)
[2018-08-24] MEDS ORDERED: D-ME118S24 PO (12:02)
--- NOTE | 2018-08-24 12:04 | ERD ---
ER Documentation Chief Complaint Chief Complaint cough w cwp and back pain, ibuprofen at 0300, cooling measures initiated HPI 38-year-old male presents for cough and chest wall tenderness with cough times 3 days. Patient also has fever. He took Motrin with some relief however he states that the fever returned. He denies any sore throat. Denies nausea, vomiting, diarrhea. Also denies shortness of breath. ROS All systems reviewed and are negative except as per history of present illness. Medications Home Meds Active Scripts Ibuprofen* (Motrin*) 600 Mg Tab, 600 MG PO Q6H PRN for PAIN AND OR ELEVATED TEMP, #30 TAB Prov:CARIN CASH DO 08/24/18 Acetaminophen* (Tylenol*) 325 Mg Tablet, 2 TAB PO Q6 PRN for FEVER GREATER THAN 100.6, #30 TAB Prov:CARIN CASH DO 08/24/18 D-Methorphan Hb/P-Epd HCl/Bpm (Jouvhxtphw-Vuiozsnynqu-Ma Syr) 118 Ml Syrup, 5 ML PO Q4H PRN for COUGH for 7 Days, #1 BOTTLE Prov:CARIN CASH DO 08/24/18 Sodium Chloride (Saline Nasal Mist) 126 Ml Mist, 2 SPRAY NASAL Q2H PRN for NASAL CONGESTION, #1 BOTTLE Prov:KAROLINA ONOFRE NP 05/25/18 Ibuprofen* (Motrin*) 600 Mg Tab, 600 MG PO Q6H PRN for PAIN AND OR ELEVATED TEMP, #30 TAB Prov:KAROLINA ONOFRE. JUN 05/25/18 Acetaminophen* (Tylophen*) 500 Mg Capsule, 1 CAP PO Q6H PRN for PAIN AND OR ELEVATED TEMP, #20 CAP Prov:KAROLINA ONOFRE AR MANAGER 05/25/18 Amoxicillin* (Amoxicillin*) 500 Mg Cap, 500 MG PO BID for 7 Days, CAP Prov:GABI JAY PA-C 12/05/17 Guaifenesin/Codeine Phosphate (CHERATUSSIN AC SYRUP) 118 Ml Liquid, 5 ML PO Q4H PRN for COUGH, #118 ML Prov:AURE SPANGLER PA-C 12/09/16 Ibuprofen* (Motrin*) 600 Mg Tab, 600 MG PO Q6, #30 TAB Prov:AURE SPANGLER PA-C 12/09/16 Ondansetron (Ondansetron Odt) 4 Mg Tab.rapdis, 4 MG PO Q6H PRN for NAUSEA AND/OR VOMITING, #10 TAB Prov:SIMONA RAPP PA-C 11/30/16 Hydrocodone/Acetaminophen ([place] 5-325 Tablet) 1 Each Tablet, 1 TAB PO Q6H PRN for PAIN, #10 TAB Prov:ARIAS JOHNSON PA-C 11/29/16 Acetaminophen* (Tylenol*) 500 Mg Tab, 1000 MG PO Q8H PRN for PAIN AND OR ELEVATED TEMP for 3 Days, TAB Prov:DARREN OSPINA 11/28/16 Penicillin V Potassium* (Penicillin V K*) 500 Mg Tab, 500 MG PO TID for 10 Days, TAB Prov:DARREN OSPINA 11/28/16 Albuterol Sulfate* (Ventolin HFA*) 18 Gm Hfa.aer.ad, 2 PUFF INHALATION Q4H, #1 INHALER Prov:FADUMO MERIDA MD 08/10/15 Azithromycin* (Zithromax*) 250 Mg Tablet, 250 MG PO .DaniloPACK DIRECTED, #6 TAB TAKE 500 MG (2 TABS) THE FIRST DAY THEN 250 MG (1 TAB) DAYS 2-5 Prov:FADUMO MERIDA MD 08/10/15 Guaifenesin-Dextromethorphan* (Robitussin* DM) 100MG/10MG/5ML Syrup, 5 ML PO Q6H PRN for COUGH, #120 ML 0 Refills Prov:MARC AGUAYO PA-C 08/09/15 Acetaminophen (Tylenol) 500 Mg Tab, 500 MG PO Q6, #30 TAB 0 Refills Prov:MARC AGUAYO PA-C 08/09/15 Ibuprofen* (Motrin*) 600 Mg Tab, 600 MG PO Q6H PRN for PAIN AND OR ELEVATED TEMP, #30 Prov:JUAN PABLO NYE 05/17/15 Allergies Allergies: Coded Allergies: No Known Allergy (Unverified , 08/24/18) PMhx/Soc Medical and Surgical Hx: pt denies Medical Hx, pt denies Surgical Hx History of Surgery: No Anesthesia Reaction: No Hx Neurological Disorder: No Hx Respiratory Disorders: No Hx Cardiac Disorders: No Hx Psychiatric Problems: No Hx Miscellaneous Medical Probl: No Hx Alcohol Use: Yes (occassional) Hx Substance Use: No Hx Tobacco Use: No Smoking Status: Never smoker Physical Exam Vitals Vital Signs Date Temp Pulse Resp B/P (MAP) Pulse Ox O2 O2 Flow FiO2 Time Delivery Rate 08/24/18 101.4 101 20 146/74 97 09:43 (98) Physical Exam Const: No acute distress Head: Atraumatic Eyes: Normal Conjunctiva ENT: Normal External Ears, bilateral tympanic membrane intact without erythema or bulging noted, nose and Mouth examination normal, no tonsillar swelling or exudate noted Neck: Full range of motion. No meningismus. Resp: Clear to auscultation bilaterally, no wheezing, rales, rhonchi Cardio: Regular rate and rhythm, no murmurs Skin: No petechiae or rashes Ext: No cyanosis, or edema Neur: Awake and alert Psych: Normal Mood and Affect Results 24 hrs Current Medications Medications Dose Sig/Noe Start Time Status Last (Trade) Ordered Route PRN Stop Time Admin Dose Reason Admin Ketorolac 30 mg ONCE STAT 08/24/18 DC 08/24/18 Tromethamine IM 10:11 10:27 (Toradol) 08/24/18 10:12 Procedures/MDM Medical Decision Making: Differential diagnosis includes but not limited to upper respiratory infection, pneumonia, sepsis, meningitis. Patient appeared well on physical examination, nontoxic appearing. Lungs were clear to auscultation bilaterally. There is low suspicion for pneumonia, sepsis, meningitis. Influenza swab is negative Chest x-ray was unremarkable Patient likely has an upper respiratory infection, likely viral. Therefore anti biotics not indicated. Discussed symptomatic treatment with patient who agrees with plan. Patient given prescription for Bromfed and Tylenol and Motrin. Patient advised to follow up with PCP in 1-2 days. Patient advised to return to ED for new or worsening symptoms. Patient stable on discharge from the ED. Disclaimer: Inadvertent spelling and grammatical errors are likely due to EHR/dictation software use and do not reflect on the overall quality of patient care. Also, please note that the electronic time recorded on this note does not necessarily reflect the actual time of the patient encounter. Departure Diagnosis: Primary Impression: URI (upper respiratory infection) URI type: unspecified URI Qualified Codes: J06.9 - Acute upper respiratory infection, unspecified Condition: Fair Patient Instructions: Preventing Common Respiratory Infections Referrals: COMMUNITY CLINICS YOU HAVE RECEIVED A MEDICAL SCREENING EXAM AND THE RESULTS INDICATE THAT YOU DO NOT HAVE A CONDITION THAT REQUIRES URGENT TREATMENT IN THE EMERGENCY DEPARTMENT. FURTHER EVALUATION AND TREATMENT OF YOUR CONDITION CAN WAIT UNTIL YOU ARE SEEN IN YOUR DOCTORS OFFICE WITHIN THE NEXT 1-2 DAYS. IT IS YOUR RESPONSIBILITY TO MAKE AN APPOINTMENT FOR FOLOW-UP CARE. IF YOU HAVE A PRIMARY DOCTOR --you should call your primary doctor and schedule an appointment IF YOU DO NOT HAVE A PRIMARY DOCTOR YOU CAN CALL OUR PHYSICIAN REFERRAL HOTLINE AT IF YOU CAN NOT AFFORD TO SEE A PHYSICIAN YOU CAN CHOSE FROM THE FOLLOWING [facility] [address]. [facility] [address] [facility] [facility] [address] [facility] [facility] [address] [facility] [facility] [address] [facility]. [facility] [address] Additional Instructions: Llame al doctor MAANA y ulises thompson NAHUN PARA DENTRO DE 1-2 STEEN.Dgale a la secretaria que nosotros le instruimos hacer esta nahun.Avise o llame si marie condicin se empeora antes de la nahun. Regresa aqui si peor o no mejor. CARIN CASH DO Aug 24, 2018 12:04
[2018-08-24 12:12] VITALS: BP 135/71; PULSE 89; RESP 18
== END 2018-08-24 12:14 | disposition home or self-care (01) ==
LOC: FTE 09:30
DX: J06.9 Acute upper respiratory infection, unspecified (principal)
CPT/HCPCS: 71046; 87400; 96372; J1885; Z7502

== ENCOUNTER 2018-09-27 08:28 | Emergency (ER) | payer OTHER ==
[~2018-09-27] VITALS: Ht 170.2 cm; Wt 82.3 kg
[~2018-09-27 08:28] MED LIST changes: +ACET325T33 PO; +D-ME118S24 PO
[2018-09-27 08:31] VITALS: BP 127/67; PULSE 94; RESP 16; Ht 170.2 cm; Wt 82.3 kg
[2018-09-27] MEDS ORDERED: KETOROLAC 30 MG INJ IM STA (09:04)
--- NOTE | 2018-09-27 09:09 | ERD ---
ER Documentation Chief Complaint Chief Complaint ST and cough x 3 days HPI This is a 38-year-old male patient who presents to the emergency room with complaint of sore pain in throat with sweating, chills, subjective fevers x3 days. Patient states he has had this multiple times over the last year, has not followed up with primary care physician or ENT specialist. Patient states his tonsils always get enlarged when he has a URI. Patient with slight muffled voice, no drooling, no stridor. ROS All systems reviewed and are negative except as per history of present illness. Medications Home Meds Active Scripts Prednisone* (Prednisone*) 20 Mg Tab, 40 MG PO DAILY for 4 Days, TAB Prov:MIRYAM OTOOLE NP 09/27/18 Amoxicillin/Potassium Clav (Amox-Clav 875-125 mg Tablet) 875-125 mg Tab, 1 TAB PO BID for 7 Days, #14 TAB Prov:MIRYAM OTOOLE NP 09/27/18 Ibuprofen* (Motrin*) 600 Mg Tab, 600 MG PO Q6H PRN for PAIN AND OR ELEVATED TEMP, #30 TAB Prov:CARIN CASH DO 08/24/18 Acetaminophen* (Tylenol*) 325 Mg Tablet, 2 TAB PO Q6 PRN for FEVER GREATER THAN 100.6, #30 TAB Prov:CARIN CASH DO 08/24/18 D-Methorphan Hb/P-Epd HCl/Bpm (Qvdouynubc-Pmenvljzjwj-Rg Syr) 118 Ml Syrup, 5 ML PO Q4H PRN for COUGH for 7 Days, #1 BOTTLE Prov:CARIN CASH DO 08/24/18 Sodium Chloride (Saline Nasal Mist) 126 Ml Mist, 2 SPRAY NASAL Q2H PRN for NASAL CONGESTION, #1 BOTTLE Prov:KAROLINA ONOFRE NP 05/25/18 Ibuprofen* (Motrin*) 600 Mg Tab, 600 MG PO Q6H PRN for PAIN AND OR ELEVATED TEMP, #30 TAB Prov:KAROLINA ONOFRE NP 05/25/18 Acetaminophen* (Tylophen*) 500 Mg Capsule, 1 CAP PO Q6H PRN for PAIN AND OR ELEVATED TEMP, #20 CAP Prov:KAROLINA ONOFRE NP 05/25/18 Amoxicillin* (Amoxicillin*) 500 Mg Cap, 500 MG PO BID for 7 Days, CAP Prov:GABI JAY PA-C 12/05/17 Guaifenesin/Codeine Phosphate (CHERATUSSIN AC SYRUP) 118 Ml Liquid, 5 ML PO Q4H PRN for COUGH, #118 ML Prov:AURE SPANGLER PA-C 12/09/16 Ibuprofen* (Motrin*) 600 Mg Tab, 600 MG PO Q6, #30 TAB Prov:AURE SPANGLER PA-C 12/09/16 Ondansetron (Ondansetron Odt) 4 Mg Tab.rapdis, 4 MG PO Q6H PRN for NAUSEA AND/OR VOMITING, #10 TAB Prov:SIMONA RAPP PA-C 11/30/16 Hydrocodone/Acetaminophen ([place] 5-325 Tablet) 1 Each Tablet, 1 TAB PO Q6H PRN for PAIN, #10 TAB Prov:ARIAS JOHNSON PA-C 11/29/16 Acetaminophen* (Tylenol*) 500 Mg Tab, 1000 MG PO Q8H PRN for PAIN AND OR ELEVATED TEMP for 3 Days, TAB Prov:DARREN OSPINA 11/28/16 Penicillin V Potassium* (Penicillin V K*) 500 Mg Tab, 500 MG PO TID for 10 Days, TAB Prov:DARREN OSPINA 11/28/16 Albuterol Sulfate* (Ventolin HFA*) 18 Gm Hfa.aer.ad, 2 PUFF INHALATION Q4H, #1 INHALER Prov:FADUMO MERIDA MD 08/10/15 Azithromycin* (Zithromax*) 250 Mg Tablet, 250 MG PO .ZPACK DIRECTED, #6 TAB TAKE 500 MG (2 TABS) THE FIRST DAY THEN 250 MG (1 TAB) DAYS 2-5 Prov:FADUMO MERIDA MD 08/10/15 Guaifenesin-Dextromethorphan* (Robitussin* DM) 100MG/10MG/5ML Syrup, 5 ML PO Q6H PRN for COUGH, #120 ML 0 Refills Prov:MARC AGUAYO PA-C 08/09/15 Acetaminophen (Tylenol) 500 Mg Tab, 500 MG PO Q6, #30 TAB 0 Refills Prov:MARC AGUAYO PA-C 08/09/15 Ibuprofen* (Motrin*) 600 Mg Tab, 600 MG PO Q6H PRN for PAIN AND OR ELEVATED TEMP, #30 Prov:JUAN PABLO NYE 05/17/15 Allergies Allergies: Coded Allergies: No Known Allergy (Unverified , 08/24/18) PMhx/Soc Medical and Surgical Hx: pt denies Medical Hx History of Surgery: No Anesthesia Reaction: No Hx Neurological Disorder: No Hx Respiratory Disorders: No Hx Cardiac Disorders: No Hx Psychiatric Problems: No Hx Miscellaneous Medical Probl: No Hx Alcohol Use: Yes (occassional) Hx Substance Use: No Hx Tobacco Use: No Physical Exam Vitals Vital Signs Date Temp Pulse Resp B/P (MAP) Pulse Ox O2 O2 Flow FiO2 Time Delivery Rate 09/27/18 98.0 94 16 127/67 96 08:31 (87) Physical Exam General: alert and oriented x4, no acute distress HEENT: normocephalic, atraumatic, PERRL, tympanic membranes normal, no nasal discharge, neck tender with lymphadenopathy, pharynx nonerythematous, tonsils +3, slight exudates Cardiovascular: regular rate and rhythm, normal peripheral perfusion Respiratory: lungs clear to auscultation and percussion, respirations non labored, normal air movement in lung aiken Abd: abd soft, no hepto or splenomegaly Extremities: no bony deformity, full ROM of major joints Psychiatric: demonstrates good judgment and reason and normal affect during examination Results 24 hrs Current Medications Medications Dose Sig/Noe Start Time Status Last (Trade) Ordered Route PRN Stop Time Admin Dose Reason Admin 10 mg ONCE ONCE 09/27/18 DC 09/27/18 Dexamethasone IM 09:30 09/27/18 09:10 (Decadron) 09:31 Ketorolac 30 mg ONCE STAT 09/27/18 DC 09/27/18 Tromethamine IM 09:04 09/27/18 09:10 (Toradol) 09:05 Procedures/MDM This is a 38 yo patient who presents to the ED with c/o sore throat. States he has had the same symptoms multiple times over the last year. States his tonsils always become enlarged when he is ill. States he has been told to follow-up with PMD for ENT referral and has never done so. Says he always just comes here. Reevaluation: patient report feeling much improved after steroid and Toradol. Pt with improved speech. No drooling, no sob. RAPID STREP ANTIGEN ,EIA NEGATIVE This patient is being discharged with diagnosis of acute pharyngitis. Alternative diagnosis such as pneumonia or other bacterial infections were considered and excluded based on my clinical impression and the data available. It was explained that no evaluation can entirely exclude more serious causes and the patient must remain vigilant while monitoring the disease process. The usual precautions and warning signs were discussed. The patient was warned to return immediately for worsening symptoms or any concerns. They were advised to seek immediate follow-up with the PMD if the illness does not follow the usual course as discussed. Throat culture sent and pending. Culture was sent due to recurring infection and several trials of penicillin. At the time of D/C, the patient looked good and nontoxic. There is no significant compromise in breathing, no signs of sepsis Patient provided with antibiotic and steroids. Patient instructed on self-care including increasing hydration, use of salt water gargles, use of lozenges, use of Chloraseptic spray. Strict ER precautions provided. Patient is strongly encouraged to establish care with primary care provider to follow-up for continual monitoring and referral to ENT Departure Diagnosis: Primary Impression: URI (upper respiratory infection) Additional Impression: Pharyngitis Patient Instructions: Pharyngitis, Strep (Confirmed) Referrals: COMM[facility]ITY CLINICS Additional Instructions: Thank you very much for allowing us to participate in your care. Your health and safety is our top priority at [facility]. Call your primary care doctor TOMORROW for an appointment during the next 2-4 days and bring all the information and medications prescribed. Have prescriptions filled and follow precisely the directions on the label. If the symptoms get worse and your provider is unavailable, return to the Emergency Department immediately. MIRYAM OTOOLE NP Sep 27, 2018 09:09
[2018-09-27] MEDS ORDERED: DEXAMETHASONE 10 MG/ML 1 ML INJ IM ONE (09:30)
[2018-09-27] MEDS ORDERED: PRED20TA PO (10:46)
[2018-09-27] MEDS ORDERED: AMOX1TAB10 PO (10:46)
== END 2018-09-27 11:02 | disposition home or self-care (01) ==
LOC: FTE 08:28
DX: J06.9 Acute upper respiratory infection, unspecified (principal)
CPT/HCPCS: 87070; 87880; 96372; J1100; J1885; Z7502

== ENCOUNTER 2019-04-20 11:50 | Emergency (ER) | payer OTHER ==
[~2019-04-20] VITALS: Ht 167.6 cm; Wt 79.4 kg
[~2019-04-20 11:50] MED LIST changes: -ACET325T33 PO; -ACET500C5 PO; -ACET500T98 PO; -ALBU18HF INHALATION; +AMOX1TAB10 PO; -AMOX500C2 PO; -AZIT250T PO; -D-ME118S24 PO; -GUAI118L22 PO; -GUAI5SYR2 PO; -HYDR-4011 PO; -IBUP-1542 PO; +MECL12.574 PO; -PENI500T PO; -SODI126M NASAL; -TYL500 PO
[2019-04-20 12:11] VITALS: BP 115/70; PULSE 79; RESP 16; Ht 167.6 cm; Wt 79.4 kg
[2019-04-20] MEDS ORDERED: ONDANSETRON 4 MG INJ IV STA (13:17)
[2019-04-20] MEDS ORDERED: SOD CHLORIDE 0.9% 1,000 ML IV STA (13:17)
[2019-04-20] MEDS ORDERED: MECLIZINE 12.5 MG TAB PO ONE (13:30)
== END 2019-04-20 14:40 | disposition home or self-care (01) ==
LOC: FTE 11:50
DX: R42 Dizziness and giddiness (principal); J45.909 Unspecified asthma, uncomplicated; B20 Human immunodeficiency virus [HIV] disease; E11.9 Type 2 diabetes mellitus without complications
CPT/HCPCS: 36415; 80048; 81001; 85025; 96361; 96374; J2405; J7030; Z7502; Z7610; 81003